=== PATIENT | female | born 1955 | race Two or more races ===

== ENCOUNTER 2023-01-19 11:00 | Inpatient (IN) | payer OTHER ==
[~2023-01-19] VITALS: Ht 160 cm; Wt 72.6 kg
[2023-01-19] MEDS ORDERED: IRBESARTAN300 MG PO (13:58)
[2023-02-07] MEDS ORDERED: ROSUVASTATIN CA10 MG (10:29)
[2023-02-07] MEDS ORDERED: AMLODIPINE BESYL5 MG (10:29)
[2023-02-07] MEDS ORDERED: HYDROCHLOROTHIA25 MG (10:29)
[2023-02-09] MEDS ORDERED: LEVSIN/SL0.125 MG SL (15:01)
== END 2023-02-09 19:23 | disposition home or self-care (01) | DRG 331 ==
LOC: SURH 01-24 11:00 → O/R 02-07 05:35 → SURH 02-07 13:48
PROVIDERS: ADMIT Surgery; ATTEND Surgery
PROC: 0DTH4ZZ Resection of Cecum, Percutaneous Endoscopic Approach (ICD-10-PCS; principal; 2023-02-07 09:00)
DX: D12.0 Benign neoplasm of cecum (principal); Z20.822 Contact with and (suspected) exposure to COVID-19